=== PATIENT | female | born 1985 | race African-American/Black ===

== ENCOUNTER 2020-11-13 15:50 | Emergency (ER) | payer OTHER ==
[2020-11-13 15:54] VITALS: BMI 28.7
[2020-11-13] MEDS ORDERED: SODIUM CHLORIDE 1,000 ML IV STA (17:13)
[2020-11-13 17:14] LABS: BASO % 0.7 % (0-2.0); EOS % 2.6 % (0-4.5); HEMATOCRIT 39.6 % (32.4-45.2); HEMOGLOBIN 13.2 GM/dL (10.7-15.3); LYMPH % 28.5 % (8-40); MCH 28.6 pg (25.7-33.7); MCHC 33.4 g/dl (32.0-36.0); MEAN CELL VOLUME 85.6 fl (80-96); MEAN PLT VOLUME 8.8 fl (7.5-11.1); MONO % 5.4 % (3.8-10.2); NEUT % 62.8 % (42.8-82.8); PLATELET COUNT 336 K/MM3 (134-434); RBC 4.63 M/mm3 (3.60-5.2); RDW 12.6 % (11.6-15.6); WHITE BLOOD COUNT 5.8 K/mm3 (4.0-10.0)
[2020-11-13 17:21] LABS: INR 0.99 (0.83-1.09)
[2020-11-13 17:39] LABS: CHLORIDE 105 mmol/L (98-107); POTASSIUM 3.7 mmol/L (3.5-5.1); SODIUM 137 mmol/L (136-145)
[2020-11-13 17:41] LABS: CALCIUM 9.4 mg/dL (8.5-10.1)
[2020-11-13 17:42] LABS: ANION GAP 6 MMOL/L (8-16); BLOOD UREA NITROGEN 5.9 mg/dL (7-18); CO2 26 mmol/L (21-32); GLUCOSE,RANDOM 96 mg/dL (74-106); MAGNESIUM 2.2 mg/dL (1.8-2.4)
[2020-11-13 17:45] LABS: CREATININE 0.8 mg/dL (0.55-1.3); SGOT/AST 19 U/L (15-37); SGPT/ALT 17 U/L (13-61)
[2020-11-13 17:47] LABS: BILIRUBIN,TOTAL 0.2 mg/dL (0.2-1); TOT PROT 8.2 g/dl (6.4-8.2)
[2020-11-13 17:48] LABS: ALK PHOS 99 U/L (45-117)
[2020-11-13 19:40] VITALS: BP 133/87; PULSE 88; TEMP 98.5
== END 2020-11-13 20:35 | disposition home or self-care (01) ==
LOC: JER 15:50
PROC: 3E0337Z Introduction of Electrolytic and Water Balance Substance into Peripheral Vein, Percutaneous Approach (ICD-10-PCS; principal; 2020-11-13)
DX: R00.2 Palpitations (principal); R07.9 Chest pain, unspecified
CPT/HCPCS: 36415; 71275-TC; 80053; 82550; 83735; 84443; 84484; 84703; 85025; 85610; 93005; 93010; 99285-25; Q9967